=== PATIENT | female | born 1955 | race Caucasian/White ===

== ENCOUNTER 2017-08-02 04:57 | Inpatient (IN) | payer OTHER ==
[2017-07-07 09:16] VITALS: BMI 29.0
--- NOTE | 2017-07-07 09:48 | PAT Medication Instructions ---
Service Date Jul 07, 2017. Current Home Medication List Cholecalciferol (Vitamin D3), 1 TAB PO QAM Medication Instructions For Your Scheduled Surgery - Hold the following medications the morning of surgery: Cholecalciferol (Vitamin D3), 1 TAB PO QAM *nothing to eat or drink after midnight* If you have any questions please call us at [phone] or [phone] or [phone]
--- NOTE | 2017-07-07 10:48 | DIAGNOSTIC IMAGING REPORT ---
CHEST 2 VIEWS ROUTINE CLINICAL HISTORY: Preoperative chest COMPARISON STUDY: No previous studies for comparison. FINDINGS: The cardiac and mediastinal contours are normal. There is no evidence of focal pulmonary consolidation. There is no evidence of failure. No pleural effusions are visualized.[ IMPRESSION: No active disease in the chest. Electronically signed by: Frantz Maldonado M.D. 07/07/2017 10:47 AM Dictated Date/Time: 07/07/2017 10:47 AM
[2017-07-07 10:50] LABS: BASO % 0.5 %; BASO ABS # 0.03 K/uL (0-0.2); EOS % 0.9 %; EOS ABS # 0.06 K/uL (0-0.5); HEMATOCRIT 42.8 % (37-47); HEMOGLOBIN 14.6 g/dL (12.0-16.0); IG# 0.01 K/uL (0.00-0.02); LYMPH % 26.6 %; LYMPH ABS # 1.75 K/uL (1.2-3.4); MEAN CELL VOLUME 89.9 fL (80-100); MEAN CORPUSCULAR HEMOGLOBIN 30.7 pg (25-34); MEAN CORPUSCULAR HGB CONC 34.1 g/dl (32-36); MEAN PLATELET VOLUME 10.1 fL (7.4-10.4); MONO % 9.9 %; MONO ABS # 0.65 K/uL (0.11-0.59); NEUT % 61.9 %; NEUT ABS # 4.07 K/uL (1.4-6.5); PLATELET COUNT 258 K/uL (130-400); RED CELL DISTRIBUTION WIDTH CV 12.1 % (11.5-14.5); RED CELL DISTRIBUTION WIDTH SD 39.5 fL (36.4-46.3); WHITE BLOOD COUNT 6.57 K/uL (4.8-10.8)
[2017-07-07 10:59] LABS: PTT PATIENT 26.2 SECONDS (21.0-31.0)
[2017-07-07 12:08] LABS: CALCIUM 9.8 mg/dl (8.5-10.1); CREATININE 0.64 mg/dl (0.60-1.20); POTASSIUM 4.6 mmol/L (3.5-5.1)
--- NOTE | 2017-07-27 17:23 | HISTORY & PHYSICAL EXAMINATION ---
DATE OF ADMISSION: 08/02/2017 CHIEF COMPLAINT: Left hip pain. 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 She has a long history of left hip pain and discomfort, which has gradually gotten worse over the years. She takes Aleve, which seems to take the edge off and that is about it. This was starting to affect her quality of life. 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 She had got pain radiating from her groin down into her knee. No numbness or radicular symptoms. She would like to have her hip fixed. PAST MEDICAL HISTORY: Significant for, 1. Arthritis. 2. Mild obesity with BMI of 30. PAST SURGICAL HISTORY: Cataract surgery. ALLERGIES: None. CURRENT MEDICATIONS: Various NSAIDS. SOCIAL HISTORY: A 61-year-old female. Lives in [place]. She really lives on a cattle farm. Very active. FAMILY HISTORY: Significant for diabetes. REVIEW OF SYSTEMS: Negative for diabetes, neurologic problems, vascular problems or bleeding disorders. Denies any chest pain. No shortness of breath. No history of DVT or PE. PHYSICAL EXAMINATION: GENERAL: Reveals a healthy, pleasant middle-aged female, who looks to be in excellent health. HEENT: Benign. NECK: Supple. No lymphadenopathy. LUNGS: Clear to auscultation. HEART: Has a regular rate and rhythm. ABDOMEN: Soft, nontender, and nondistended. EXTREMITIES: Grossly neurovascularly intact except as follows. Examination of the left hip and leg reveals that the patient walks with a bit of a limp. Leg lengths clinically appear equal. She has pain with any type of hip motion. She can internally rotate to about neutral. External rotation at 25 degrees. Negative straight leg raise. X-RAYS: X-rays of the left hip were reviewed. It shows advanced left hip DJD. She has complete loss of her superior joint space. 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 It is affecting her quality of life. She would like to have her left hip fixed. PLAN: We are going to take her to the operating room and do a left total hip replacement. The risks and benefits of this procedure were explained to the patient including, but not limited to DVT, PE, , infection, neurological injury, vascular injury, bleeding problem, pain, limited range of motion, stiffness, failure to relieve symptoms, incomplete relief of symptoms, need for further surgery in the future, fracture, leg length inequality, nerve palsy, dislocation, etc. The patient understands and desires to proceed. Informed consent was obtained. She says that she feels like this leg is a little bit longer than the other. Clinically, it is equal and if anything, maybe a little short. In total, we will do the best we can and make her legs as equal as possible, but it is unlikely we can shorten it at all. As far as discharge plans, she is planning to be discharged to home. She is to stop her NSAIDs 2 weeks preop.
[2017-08-02] VITALS (23 sets, daily range): BP systolic 91–116; BP diastolic 54–75; PULSE 54–91; TEMP 36.3–37.7; O2SAT 95–100; Ht 154.9 cm; Wt 69.9 kg
[~2017-08-02] VITALS: Ht 154.9 cm; Wt 69.9 kg
[~2017-08-02 04:57] MED LIST: CHOL1000 PO
[2017-08-02] MEDS ORDERED: GABAPENTIN 600 MG PO SCH (06:00)
[2017-08-02] MEDS ORDERED: ACETAMINOPHEN 500 MG TAB PO SCH (06:00)
[2017-08-02] MEDS ORDERED: CEFAZOLIN 2000MG IV PUSH 15 ML IV SCH (06:00)
[2017-08-02] MEDS ORDERED: TRANEXAMIC ACID INJ 1,000 MG x 1 Bag Preop IV SCH ×2 (06:00)
[2017-08-02] MEDS ORDERED: LACTATED RINGER'S 1000ML IV SCH (06:00)
[2017-08-02] MEDS ORDERED: LACTATED RINGER'S 1000ML 500 ML IV SCH (06:00)
[2017-08-02] MEDS ORDERED: SCOPOLAMINE 1.5 MG TDSY TD SCH (06:00)
[2017-08-02] MEDS ORDERED: METOCLOPRAMIDE HCL 10 MG TAB PO SCH (06:00)
[2017-08-02] MEDS ORDERED: FAMOTIDINE 20 MG TAB PO SCH (06:00)
[2017-08-02] MEDS ORDERED: LACTATED RINGER'S 1000ML 1,000 ML IV SCH (06:00)
[2017-08-02] MEDS ORDERED: BACITRACIN 50000 UNIT VIAL ONE (06:27)
[2017-08-02] MEDS ORDERED: BUPIVACAINE/EPINEPHRINE 0.5% MPF 1:200,000 30 ML VIAL ONE (06:27)
[2017-08-02] MEDS ORDERED: BUPIVACAINE 0.5 % 5 MG/1 ML PF 10ML VIAL ONE (06:32)
[2017-08-02] MEDS ORDERED: LIDOCAINE HCL 2% 2 ML VIAL (20MG/ML) ONE (06:34)
[2017-08-02] MEDS ORDERED: PROPOFOL IV EMULSION 10 MG/ML 20 ML VIAL IV ONE ×2 (06:34→07:11)
[2017-08-02] MEDS ORDERED: FENTANYL CITRATE INJ 50 MCG/1 ML 2 ML VIAL ONE (06:34)
[2017-08-02] MEDS ORDERED: MoRPHine SULFATE 2 MG/ML CARP ONE (06:34)
[2017-08-02] MEDS ORDERED: MIDAZOLAM HCL 1 MG/ML 2ML VIAL ONE ×2 (06:34→06:43)
[2017-08-02] MEDS ORDERED: MORPHINE SULFATE 1MG/1ML 30ML VIAL IV ONE (06:40)
--- NOTE | 2017-08-02 06:48 | History & Physical Bridge Note ---
H&P Re-Evaluation Bridge Note: I have examined the patient, reviewed the History & Physical and in the interval since the performance of the History & Physical I have noted the following changes of clinical significance: No changes noted
[2017-08-02] MEDS ORDERED: PHENYLEPHRINE 100MCG/ML 5ML SYR ONE (07:14)
[2017-08-02] MEDS ORDERED: ONDANSETRON INJ 2 MG/ML 2 ML VIAL ONE (07:21)
[2017-08-02] MEDS ORDERED: NO NARCOTICS OR SEDATIVES SCH (07:30)
[2017-08-02] MEDS ORDERED: EpHEDrine SULFATE INJ 50 MG/ML AMP IV PRN ×2 (07:30)
[2017-08-02] MEDS ORDERED: PHENYLEPHRINE 100MCG/ML 5ML SYR IV PRN (07:30)
[2017-08-02] MEDS ORDERED: MoRPHine SULFATE PF 1 MG/ML 10 ML AMP/VIAL EPI PRN (07:30)
[2017-08-02] MEDS ORDERED: NALOXONE HCL INJ 1 MG in SODIUM CHLORIDE 0.9% 1000ML 1,000 ML IV PRN ×4 (07:30)
[2017-08-02] MEDS ORDERED: DiphenhydrAMINE HCL 50 MG/ML VIAL IV PRN (07:30)
[2017-08-02] MEDS ORDERED: PROMETHAZINE HCL INJ 12.5 MG in SODIUM CHLORIDE 0.9% 50ML 50 ML IV PRN (07:30)
[2017-08-02] MEDS ORDERED: NALOXONE HCL INJ 0.08 MG in SYRINGE 1.8 ML IV PRN (07:30)
[2017-08-02] MEDS ORDERED: MEPERIDINE HCL 25 MG/ML CARP IV PRN ×2 (07:30)
[2017-08-02] MEDS ORDERED: NALOXONE HCL 0.4 MG/1 ML VIAL/CARP IV PRN (07:30)
[2017-08-02] MEDS ORDERED: KETOROLAC TROMETHAMINE 30 MG/ML VIAL IV. PRN ×2 (07:30)
[2017-08-02] MEDS ORDERED: SODIUM CHLORIDE 0.9% 1000ML 1,000 ML IV PRN (07:30)
[2017-08-02] MEDS ORDERED: ATROPINE SULFATE 0.1 MG/ML 5ML SYR IV PRN (07:30)
[2017-08-02] MEDS ORDERED: ONDANSETRON INJ 2 MG/ML 2 ML VIAL IV PRN ×3 (07:30→08:45)
[2017-08-02] MEDS ORDERED: LACTATED RINGER'S 1000ML 500 ML IV PRN (07:30)
[2017-08-02] MEDS ORDERED: NALBUPHINE HCL INJ 10 MG/ML AMP IV PRN (07:30)
--- NOTE | 2017-08-02 08:32 | [facility] Post Operative Brief Note ---
Immediate Operative Summary Operative Date Aug 02, 2017. Pre-Operative Diagnosis Left Hip Degenerative Joint Disease Post-Operative Diagnosis Same as Preop Procedure(s) Performed Left Total Hip Arthroplasty Uncemented Surgeon Dr. Castro Associate Software Engineer Surgeon(s) Montez Lau PA-C Estimated Blood Loss 300 ml Findings Consistent with Post-Op Diagnosis Fluids (cc crystalloids) 1300 cc Specimens A. Left Femoral Head Drains None Anesthesia Type Spinal MAC Complication(s) none Disposition Accompanied Pt To Recover: yes Disposition: Recovery Room / PACU
[2017-08-02] MEDS ORDERED: SILVER SULFADIAZINE 1% CR 50 GM JAR EXT PRN (08:45)
[2017-08-02] MEDS ORDERED: METOCLOPRAMIDE HCL INJ 5 MG/ML 2 ML VIAL IV PRN (08:45)
[2017-08-02] MEDS ORDERED: ALUMINUM/MAGNESIUM/SIMETH (MAALOX MAX) 30 ML UDC PO PRN (08:45)
[2017-08-02] MEDS ORDERED: MAGNESIUM HYDROXIDE SUSP 30 ML UDC PO PRN (08:45)
[2017-08-02] MEDS ORDERED: BISACODYL 10 MG SUPP PR PRN (08:45)
[2017-08-02] MEDS: DOCUSATE SODIUM 100 MG CAP PO SCH ×2 (09:00→21:11)
[2017-08-02] MEDS: MULTIVITAMIN TAB PO SCH (09:00)
--- NOTE | 2017-08-02 09:06 | DIAGNOSTIC IMAGING REPORT ---
L PELVIS/UNILATERAL HIP 1 VIEW CLINICAL HISTORY: IN PACU - A/P PELVIS and LATERAL HIP INCLUDING ALL OF IMPLANT COMPARISON: None. DISCUSSION: Post total left hip arthroplasty. Good contact between prosthetic and underlying bone. Expected soft tissue postoperative change IMPRESSION: Anatomic alignment status post total left hip arthroplasty. The above report was generated using voice recognition software. It may contain grammatical, syntax or spelling errors. Electronically signed by: Gustavo Matute M.D. 08/02/2017 9:04 AM Dictated Date/Time: 08/02/2017 9:03 AM
--- NOTE | 2017-08-02 09:08 | OPERATIVE REPORT ---
DATE OF OPERATION: 08/02/2017 SURGEON: Bill Castro MD SENIOR MATERIALS ANALYST: SANOTSH Castaneda PREOPERATIVE DIAGNOSIS: Left hip degenerative joint disease. POSTOPERATIVE DIAGNOSIS: Same. PROCEDURE PERFORMED: Left uncemented ceramic on highly cross-linked polyethylene total hip arthroplasty. COMPLICATIONS: None. ESTIMATED BLOOD LOSS: 300 mL. FLUID REPLACEMENT: 1300 mL crystalloid fluid replacement. ANESTHESIA: Spinal. DRAINS: None. SPECIMENS: Left femoral head sent for pathology. 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 She has failed conservative treatment. She had elected to proceed with total hip arthroplasty. OPERATIVE FINDINGS: Operative findings revealed advanced left hip DJD. She had grade 4 [id number] disease of the femoral head and acetabulum. She had pretty extensive effusion and synovitis in the hip. OPERATIVE IMPLANTS: Operative implants consisted of: 1. A Biomet size 48-mm G7 acetabular shell. 2. A 6.5 cancellous acetabular screws, 1 at 35 mm in length and 1 at 20 mm in length. 3. An apex hole eliminator. 4. Highly cross-linked polyethylene liner with a 48 mm outer diameter and 28 mm inner diameter. 5. A DePuy size 10 Corail coxa vara femoral component. 6. +1.5/28 mm ceramic articular ball. OPERATIVE PROCEDURE: The patient was taken to the operating room, identified and placed on the operating table in the supine position. All contact areas were appropriately padded. IV antibiotics were provided by the anesthesia team. A spinal anesthetic had been implemented in the holding area. Dewitt catheter was placed in sterile fashion. The patient was then placed in the right lateral decubitus position. An axillary roll was placed. Stulberg hip positioner was used for positioning. The left hip and leg were then prepped and draped in the usual sterile fashion. A posterolateral approach to the left hip was then performed through a curvilinear incision centered over the greater trochanter. Sharp dissection was carried out through the subcutaneous tissues down to the level of the IT band and gluteal fascia. The soft tissue envelope was quite thick concerning her small and relatively thin stature elsewhere. An incision was made in the IT band and gluteal fascia in line with the skin incision. The underlying greater trochanteric bursa was excised. The piriformis and external rotators were tagged and taken off the posterior aspect of the femur. Great care was taken throughout the procedure to protect the sciatic nerve at all times. Posterior capsulotomy was then performed leaving a large flap for later repair. It was internally rotated and dislocated. Femoral neck osteotomy cut was made with the final cut 6 mm above the lesser trochanter. Femoral head was removed and sent for pathology. Attention was then drawn to the acetabulum. The acetabular labrum was excised. The pulvinar fat was excised. Sequential reaming of the acetabulum was then performed beginning with a size 43 and progressing up to 47. A 48-mm Biomet G7 acetabular shell was then placed in about 40 degrees of lateral opening and 20 degrees of anteversion. It was fixed with two 6.5 cancellous acetabular screws. A trial liner was placed and attention was then drawn to the femur. The proximal femur was entered with [employer] cutter followed by canal finder. I then broached beginning with a size 8 and progressing up to 10. We got excellent fit with a 10. I then used a calcar reamer to smoothen off the calcar. We then trialed the hip. Due to her short stature and very small offset and her feelings that her leg length was actually a little bit long, we elected to use a coxa vara stem to try and minimize lengthening and place a shorter neck on to try and minimize any of eventual lengthening of her leg. I then trialed the hip with the +1.5 articular ball. The hip was fully stable in full extension and external rotation and flexion to 90 degrees and internal rotation to 50+ degrees. Leg lengths clinically appeared equal. I felt like we increase our offset slightly, but I did not feel like we had an alternative considering her bony architecture. We elected to place these implants. All trial implants were removed. An apex hole eliminator was placed. Highly cross-linked polyethylene liner was placed. A Corail size 10 coxa vara femoral stem was impacted in position. A +1.5 ceramic articular ball was placed. Hip was located and once again found to be stable. Attention was then drawn toward closing. The wound was irrigated with copious amounts of pulsatile lavage solution. I did inject locally with 60 mL of 0.5% Marcaine with epinephrine. The posterior capsule and external rotators were repaired through drill holes in the posterior trochanter with #2 Ti-Cron suture. The IT band and gluteal fascia were then closed with #1 PDS suture in running fashion. The subcutaneous tissues were closed with 2 layers, the deep layer #2 Vicryl suture in a buried interrupted fashion and the subcutaneous tissues with 2-0 Dexon suture in a buried interrupted fashion. The skin was closed with skin wilbert. Leg was then cleaned and dried and a sterile dressing of Xeroform, 4 x 4, sterile ABD pad and foam tape was applied. The patient then transferred to the recovery room in stable condition. The patient tolerated the procedure well with no complications. All needle and sponge counts were correct at the end of the operation. I attest to the content of the Intraoperative Record and any orders documented therein. Any exception s are noted below.
--- NOTE | 2017-08-02 10:15 | Anesthesiology Progress Note ---
Anesthesia Post Op Note Date & Time Aug 02, 2017 at 10:15 Vital Signs Pain Intensity: 0.0 Vital Signs Past 12 Hours Date Time Temp Pulse Resp B/P (MAP) Pulse Ox O2 Delivery O2 Flow Rate FiO2 08/02/17 09:23 100 Nasal Cannula 2.0 08/02/17 09:20 100 Nasal Cannula 2.0 08/02/17 09:20 15 100 08/02/17 09:19 36.4 59 17 98/60 (73) 100 Nasal Cannula 2.0 08/02/17 09:10 72 16 98/59 100 Nasal Cannula 3 08/02/17 08:55 36.2 66 16 101/59 100 Oxymask 3 08/02/17 08:45 70 16 102/63 99 Oxymask 3 08/02/17 08:35 36.1 79 12 93/54 99 Oxymask 5 08/02/17 05:33 36.7 82 20 116/73 95 Room Air Notes Mental Status: alert / awake / arousable, participated in evaluation Pt Amnestic to Procedure: Yes Nausea / Vomiting: adequately controlled Pain: adequately controlled Airway Patency, RR, SpO2: stable & adequate BP & HR: stable & adequate Hydration State: stable & adequate Anesthetic Complications: no major complications apparent
[2017-08-02] MEDS: D5W AND 1/2NSS + 20MEQ KCL 1,000 ML IV SCH ×2 (12:14→22:07)
[2017-08-02] MEDS: KETOROLAC TROMETHAMINE 30 MG/ML VIAL IV. SCH ×3 (12:15→23:30)
[2017-08-02] MEDS: FERROUS GLUCONATE 324 MG TAB PO SCH ×2 (12:51→18:14)
--- NOTE | 2017-08-02 13:32 | PROGRESS NOTE ---
DATE: 08/02/2017 SUBJECTIVE: A 61-year-old female postop from a left total hip replacement. She is doing well. Not having any pain yet. No chest pain or shortness of breath. Not feeling dizzy or lightheaded. OBJECTIVE: VITAL SIGNS: Temperature is 36.3. Vital signs stable. GENERAL: Reveals a pleasant, middle-aged female. She is sitting up in bed and eating lunch. She is talking to her family. She looks comfortable. LUNGS: Clear to auscultation. HEART: Has a regular rate and rhythm. ABDOMEN: Soft, nontender, nondistended. EXTREMITIES: Grossly neurovascularly intact except as follows. The examination of the left leg reveals the leg to be well aligned. Dressing is clean, dry and intact. Hip is located. She can dorsiflex and plantarflex her foot appropriately. She is neurologically intact. X-RAYS: X-rays of the left hip were reviewed. It shows a left uncemented total hip arthroplasty. Components looked to be in good position. No signs of problems. ASSESSMENT: A 61-year-old female postop from a left hip replacement, doing well. Pain is controlled. Hip is located. She is neurologically intact. PLAN: 1. DVT prophylaxis including thigh-high TEDs, SCDs, and aspirin twice a day. 2. PT/OT. Weightbear as tolerated. Left total hip protocol. 3. Pain control. Doing well with current pain regimen. 4. IV antibiotics x24 hours. 5. Disposition: She is planning to be discharged to home once adequately recovered. CHRIS
[2017-08-02] MEDS ORDERED: TRANEXAMIC ACID INJ 1,000 MG in SODIUM CHLORIDE 0.9% 100ML 100 ML IV ONE (14:30)
[2017-08-02] MEDS: ACETAMINOPHEN 500 MG TAB PO SCH ×2 (14:30→22:06)
[2017-08-02] MEDS: CEFAZOLIN IV 1,000 MG in DEXTROSE 5% 50ML 50 ML IV SCH ×2 (14:34→22:34)
[2017-08-02] MEDS: CHECK SCOPOLAMINE PATCH PLACEMENT SCH ×2 (16:05→23:30)
[2017-08-02] MEDS ORDERED: SENNA 8.6 MG TAB PO SCH (21:00)
[2017-08-02] MEDS: ASPIRIN 81 MG ECTAB PO SCH (21:11)
[2017-08-03] MEDS ORDERED: ZOLPIDEM TARTRATE 5 MG TAB PO PRN
[2017-08-03] MEDS ORDERED: DC INTRASPINAL MORPHINE ONE
[2017-08-03] MEDS ORDERED: MoRPHine SULFATE 2 MG/ML CARP IV PRN
[2017-08-03] MEDS ORDERED: OXYCODONE HCL IR 5 MG TAB (IMMEDIATE RELEASE) PO PRN
[2017-08-03] MEDS ORDERED: DiphenhydrAMINE HCL 50 MG/ML VIAL IV PRN
[2017-08-03 03:15] VITALS: BP 92/59; PULSE 84; TEMP 36.9; O2SAT 94
[2017-08-03] MEDS: ACETAMINOPHEN 500 MG TAB PO SCH ×2 (06:10→13:31)
[2017-08-03] MEDS: D5W AND 1/2NSS + 20MEQ KCL 1,000 ML IV SCH (06:11)
[2017-08-03] MEDS: KETOROLAC TROMETHAMINE 30 MG/ML VIAL IV. SCH ×2 (06:19→12:00)
[2017-08-03] MEDS ORDERED: RXC5 PO (07:01)
[2017-08-03] MEDS ORDERED: FRRG PO (07:01)
[2017-08-03] MEDS ORDERED: ASPEC81 PO (07:01)
[2017-08-03] MEDS ORDERED: ACET-24 PO (07:01)
--- NOTE | 2017-08-03 07:03 | Discharge Instructions ---
Discharge Instructions Date of Service Aug 03, 2017. Admission Reason for Admission: Left Hip Degenerative Joint Disease Discharge Discharge Diagnosis / Problem: Left Hip Replacement Discharge Goals Goal(s): Decrease discomfort, Improve function, Increase independence, Improve disease control, Therapeutic intervention Activity Recommendations Activity Limitations: per Instructions/Follow-up section (Total Hip Precautions ) Weightbearing Status: Left weightbearing . Instructions / Follow-Up Instructions / Follow-Up ACTIVITY RECOMMENDATIONS: Physical Therapy: * Aggressive physical therapy is not usually needed. You will learn to take care of yourself safely and walk. * Follow the "Hip Precautions Instructions." * In some cases, the social media strategist at the hospital will arrange to have a therapist come to your house for the first couple of weeks to help you learn these skills. * You need to practice on your own or with the help of a family member as needed. * When you learn these skills, most of the therapy can be done on your own. Home Exercise: * You were shown a series of exercises in the hospital. Do these exercises three to four times each day including the exercises you were shown in physical therapy. Walking: * Get up and walk several times each day. For the first four weeks, try not to stand or walk for more than one hour at a time. If you do stand or walk for more than one hour, you will not hurt anything, but your leg will likely swell. * As you feel comfortable, you may change from the walker or crutches to a cane and then to independent walking. MEDICATIONS: New Medicine: * You will likely be taking one or more of these medicines: 1. Oxycodone - Take, as directed, when you need it, every four to six hours to control your pain. 2. Iron Sulfate - Take two times each day for the month after surgery to help you replace the blood lost during surgery. 3. Aspirin - Thins your blood to lessen the chance of forming a blood clot. * The most common side effects of pain medicine and iron are nausea and constipation. If nausea or constipation is too much of a problem or if you have any questions about your new medicines or doses, call [facility] at . We will try to help you manage these issues. VERY IMPORTANT TO READ AND REVIEW" Pain: * The immediate post-operative period after hip replacement surgery is often quite painful. * You are given a prescription for pain medicine. You should take it, as directed, when you need it, especially before physical therapy and before going to bed. Pain that interferes with sleep is very common and can last several months. * You will likely need pain medicine for the first two to four weeks. It will not stop all of the pain. The pain will lessen and as you feel better, you may change to milder pain medicine such as Tylenol. * The most common side effects of pain medicine are nausea and constipation, so don't take more than you need. SPECIAL CARE INSTRUCTIONS: TEDs/Elastic Stockings: * The white elastic stockings help limit swelling and prevent blood clots from forming in your legs. The more you wear them, the more they work. * Wear them for six weeks. Prevention of Infection: * Take antibiotics one hour before any dental cleaning, dental work, urological procedure, gastrointestinal procedure or any invasive surgery in order to prevent your new joint from getting infected. * You may get the antibiotics from the doctor performing the procedure or you may call our office at before and we will call in a prescription to the pharmacy of your choice. Things to Watch For: * Drainage from the incision site that occurs more than one week after your surgery. * Severely increased leg pain or swelling. * Increased redness at the incision site. * Fever above 102 degrees Fahrenheit. * Unusual chest pain or shortness of breath. * Unusual pain or burning with urination. Call [facility] at with any of the above problems or if you have any questions about your medicines or recovery. FOLLOW UP VISIT: Make an appointment to see your doctor for approximately two weeks after surgery for a progress check and staple removal by calling the office at . Current Hospital Diet Patient's current hospital diet: Regular Diet Discharge Diet Recommended Diet: Regular Diet Procedures Procedures Performed: Left Total Hip Arthroplasty Uncemented Pending Studies Studies pending at discharge: no Medical Emergencies . Who to Call and When: Medical Emergencies: If at any time you feel your situation is an emergency, please call [phone] immediately. . Non-Emergent Contact Non-Emergency issues call your: Surgeon . "Provider Documentation" section prepared by Bill Castro. . VTE Core Measure Inpt VTE Proph given/why not?: Other Anticoagulation, T.E.D. Stockings, SCD's
[2017-08-03 07:53] LABS: BASO % 0.1 %; BASO ABS # 0.01 K/uL (0-0.2); EOS % 0.2 %; EOS ABS # 0.02 K/uL (0-0.5); HEMATOCRIT 32.1 % (37-47); HEMOGLOBIN 10.8 g/dL (12.0-16.0); IG# 0.02 K/uL (0.00-0.02); LYMPH % 9.4 %; LYMPH ABS # 1.08 K/uL (1.2-3.4); MEAN CELL VOLUME 90.9 fL (80-100); MEAN CORPUSCULAR HEMOGLOBIN 30.6 pg (25-34); MEAN CORPUSCULAR HGB CONC 33.6 g/dl (32-36); MEAN PLATELET VOLUME 10.2 fL (7.4-10.4); MONO % 10.4 %; NEUT % 79.7 %; NEUT ABS # 9.17 K/uL (1.4-6.5); PLATELET COUNT 151 K/uL (130-400); RED CELL DISTRIBUTION WIDTH CV 12.4 % (11.5-14.5); RED CELL DISTRIBUTION WIDTH SD 40.8 fL (36.4-46.3)
[2017-08-03 07:54] VITALS: BP 98/66; PULSE 77; TEMP 37; O2SAT 96
[2017-08-03] MEDS: CHECK SCOPOLAMINE PATCH PLACEMENT SCH (08:00)
[2017-08-03 08:21] VITALS: O2SAT 96
[2017-08-03 08:33] LABS: CALCIUM 8.4 mg/dl (8.5-10.1); CREATININE 0.76 mg/dl (0.60-1.20); POTASSIUM 4.4 mmol/L (3.5-5.1)
[2017-08-03] MEDS ORDERED: PANTOprazole SOD 40 MG TAB PO SCH (09:00)
[2017-08-03] MEDS ORDERED: CHOLECALCIFEROL 1000 INTER.UNIT TAB PO SCH (09:00)
[2017-08-03] MEDS ORDERED: TAPENTADOL ER 50 MG TABCR PO SCH (09:00)
[2017-08-03] MEDS: DOCUSATE SODIUM 100 MG CAP PO SCH (09:08)
[2017-08-03] MEDS: ASPIRIN 81 MG ECTAB PO SCH (09:08)
[2017-08-03] MEDS: FERROUS GLUCONATE 324 MG TAB PO SCH ×2 (09:08→13:01)
[2017-08-03] MEDS: MULTIVITAMIN TAB PO SCH (09:09)
--- NOTE | 2017-08-03 09:09 | Anesthesiology Progress Note ---
Anesthesia Post Op Note Date & Time Aug 03, 2017 at 09:08 Vital Signs Pain Intensity: 4.0 Vital Signs Past 12 Hours Date Time Temp Pulse Resp B/P (MAP) Pulse Ox O2 Delivery O2 Flow Rate FiO2 08/03/17 08:21 96 Room Air 08/03/17 07:54 37.0 77 16 98/66 (77) 96 Room Air 08/03/17 07:15 Room Air 08/03/17 03:15 36.9 84 18 92/59 (70) 94 Room Air 08/02/17 23:50 37.7 91 18 103/66 (78) 95 Room Air 08/02/17 23:20 Room Air 08/02/17 23:20 18 95 08/02/17 22:20 18 100 08/02/17 22:05 37.2 72 18 114/75 (88) 100 Room Air 08/02/17 21:20 20 99 Notes Mental Status: alert / awake / arousable, participated in evaluation Pt Amnestic to Procedure: Yes Nausea / Vomiting: adequately controlled Pain: adequately controlled Airway Patency, RR, SpO2: stable & adequate BP & HR: stable & adequate Hydration State: stable & adequate Neuraxial Anesthesia: sensory block resolved Anesthetic Complications: no major complications apparent
--- NOTE | 2017-08-03 11:31 | PROGRESS NOTE ---
DATE: 08/03/2017 SUBJECTIVE: A 61-year-old female postop day #1 from a left total hip replacement. She is doing well. Pain is controlled. Denies any chest pain. No shortness of breath. Not feeling dizzy or lightheaded. OBJECTIVE: VITAL SIGNS: Temperature 37.0. Vital signs stable. GENERAL: Physical examination reveals a pleasant, middle-aged female. She was walking the hallways with the therapist when I visited her today. EXTREMITIES: Examination of the left leg reveals the dressing to be clean, dry and intact. Leg lengths were equal. Hip is located. She is neurologically intact. LABORATORY DATA: Hemoglobin 10.8 and hematocrit 32.1. Electrolytes are stable. ASSESSMENT: A 61-year-old female postop day #1 from a left total hip replacement, doing well. Pain is controlled. Therapy has gone well. PLAN: 1. DVT prophylaxis including thigh-high TEDs, SCDs, and aspirin twice a day. 2. PT/OT. Weight bear as tolerated. Left total hip protocol. 3. Pain control. Doing well with current pain regimen. 4. Disposition: Plan to discharge to home and she is going to do outpatient therapy.
[2017-08-03 11:57] VITALS: BP 98/66; PULSE 77; TEMP 37; O2SAT 96
[2017-08-03 12:43] VITALS: BP 112/72; PULSE 77; TEMP 36.8; O2SAT 95
--- NOTE | 2017-08-11 07:10 | DISCHARGE SUMMARY ---
ADMITTING PHYSICIAN AND SURGEON: Bill Castro MD. ADMITTING DIAGNOSIS: Left hip degenerative joint disease. SURGERY PERFORMED: Left total hip arthroplasty. SECONDARY DIAGNOSES: Arthritis, mild obesity. CONSULTS: None obtained. HISTORY AND PHYSICAL EXAMINATION: Well documented in the patient's chart. HOSPITAL COURSE: The patient was admitted on 08/02/2017 and underwent total hip arthroplasty, tolerated the procedure well. There were no complications. She was transferred to the PACU postoperatively and later to the orthopedic floor for further care. She was given Ancef for antibiotic prophylaxis, LEIGH ANN stockings, SCDs and aspirin for DVT prophylaxis. Hemoglobin, hematocrit and vital signs were monitored during her hospital stay and remained stable. She developed some mild postoperative anemia, did not require any blood transfusions. There were no complications. By postoperative day 1, she was tolerating a general diet, pain was controlled with oral pain medicine. She was participating in physical therapy. On postop day 1, she was discharged home. She was given printed discharge instructions including new prescription for extra strength Tylenol, aspirin 81 mg b.i.d., iron supplement and oxycodone. Continue her home medications, continue physical therapy, weightbearing as tolerated, LEIGH ANN stockings, total hip precautions. Follow up in 10-12 days or sooner if any problems or concerns.
== END 2017-08-03 13:51 | disposition home or self-care (01) | DRG 470 ==
LOC: C.ACU 04:57 → C.3E 05:43 → ENRESERV 08:52
PROVIDERS: ADMIT Orthopaedic Surgery Sports Medicine; ATTEND Orthopaedic Surgery Sports Medicine
PROC: 0SRB04A Replacement of Left Hip Joint with Ceramic on Polyethylene Synthetic Substitute, Uncemented, Open Approach (ICD-10-PCS; principal; 2017-08-02 07:00)
DX: M16.12 Unilateral primary osteoarthritis, left hip (principal); E66.9 Obesity, unspecified; Z68.30 Body mass index [BMI] 30.0-30.9, adult; Z83.3 Family history of diabetes mellitus